=== PATIENT | male | born 1960 | race African-American/Black ===

== ENCOUNTER 2018-10-08 22:46 | Emergency (ER) | payer OTHER ==
[~2018-10-08] VITALS: Ht 182.9 cm; Wt 80.7 kg
[2018-10-08 23:10] VITALS: BP 146/96
[2018-10-08] MEDS ORDERED: LISINOPRIL20 MG ORAL (23:15)
[2018-10-08] MEDS ORDERED: NORVIR100 MG ORAL (23:15)
[2018-10-09 00:21] LABS: BASOPHILS % (AUTO) 2.3 % (0.0-2.0); EOSINOPHILS % (AUTO) 1.4 % (0.0-3.0); HEMATOCRIT 45.7 % (42.0-52.0); HEMOGLOBIN 15.4 G/DL (14.2-18.0); LYMPHOCYTES % (AUTO) 21.9 % (20.0-45.0); MEAN CORPUSCULAR VOLUME 85 FL (80-99); MONOCYTES % (AUTO) 6.7 % (1.0-10.0); NEUTROPHILS % (AUTO) 67.8 % (45.0-75.0); PLATELET COUNT 305 K/UL (150-450)
[2018-10-09 00:49] LABS: ALANINE AMINOTRANSFERASE 23 U/L (12-78); ALBUMIN 3.6 G/DL (3.4-5.0); ALBUMIN/GLOBULIN RATIO 0.7 (1.0-2.7); ALKALINE PHOSPHATASE 74 U/L (46-116); ANION GAP 6 mmol/L (5-15); ASPARTATE AMINO TRANSFERASE 32 U/L (15-37); BILIRUBIN,TOTAL 0.4 MG/DL (0.2-1.0); BLOOD UREA NITROGEN 20 mg/dL (7-18); CALCIUM 9.1 MG/DL (8.5-10.1); CARBON DIOXIDE 30 MMOL/L (21-32); CHLORIDE 102 MMOL/L (98-107); CREATININE 1.3 MG/DL (0.55-1.30); POTASSIUM 4.8 MMOL/L (3.5-5.1); SODIUM 138 MMOL/L (136-145)
--- NOTE | 2018-10-09 01:49 | Emergency Room Report ---
History of Present Illness General Chief Complaint: Behavioral Complaint Source: Patient, EMS (Lalo Knott MD) Present Illness HPI Patient presents via EMS with suicidal ideation. He called them. Allegedly he' s been doing cocaine and feels that he wants to end his life. Apparently has no plan that he is willing to discuss. [employer] accompanied patient. H/O depression and supposed to be taking Effexor. Off for many months. No chest pain, cough, NVD, abdominal pain, headache, weakness, polies, head injury, joint pain, rashes, dysuria. (Lalo Knott MD) Allergies: Coded Allergies: No Known Allergies (Unverified , 10/08/18) Patient History Past Medical History: see triage record Social History: Reports: smoking, drug use Social History Narrative in board and care Reviewed Nursing Documentation: PMH: Agreed; PSxH: Agreed (Lalo Knott MD) Nursing Documentation-PMH Hx Hypertension: Yes Hx Cancer: Yes - bladder Hx Neurological Problems: Yes - hiv (Lalo Knott MD) Review of Systems All Other Systems: negative except mentioned in HPI (Lalo Knott MD) Physical Exam Vital Signs Date Time Temp Pulse Resp B/P (MAP) Pulse Ox O2 Delivery O2 Flow Rate FiO2 10/08/18 23:10 99.0 76 14 146/96 99 Room Air Sp02 EP Interpretation: reviewed, normal General Appearance: well appearing, no apparent distress, GCS 15 Head: normocephalic Eyes: bilateral eye PERRL, bilateral eye EOMI, bilateral eye Scleral Injection ENT: moist mucus membranes Neck: supple Respiratory: chest non-tender, lungs clear, normal breath sounds Cardiovascular #1: regular rate, rhythm Cardiovascular #2: 2+ radial (R) Gastrointestinal: normal inspection, normal bowel sounds, non tender, no mass, non-distended Musculoskeletal: back normal, gait/station normal, normal range of motion Neurologic: alert, oriented x3, normal gait, grossly normal Psychiatric: depressed affect Suicide Risk Assessment: Suicidal Ideation: Yes Had intent to initiate attempt: No Pt's plan for suicide attempt: No Has means to complete attempt: No Skin: normal inspection, warm/dry (Lalo Knott MD) Medical Decision Making Diagnostic Impression: Primary Impression: Cocaine abuse Additional Impressions: Non-compliance Schizoaffective disorder Qualified Codes: F25.1 - Schizoaffective disorder, depressive type Suicidal ideation ER Course Patient presents for depression with non-compliance. DDx: exacerbation of depression, electrolyte imbalance, occult infection, drug ingestion amongst others. Evaluation with EKG and labs. Treatment with IV hydration and repeat evaluation. Imaging not indicated. EKG without injury. Labs with + tox for THC and cocaine. CBC and CMP normal ( BUN 20). Ordered usual psych meds and patient refused. Ate well and slept. Patient now taking Effexor and lisinopril (had refused to do so prior). I offered to give Rx but he states he does not feel stable to go home "I don't like my life". Patient states he wants to go to a psychiatric facility at this time. He now states last night he was thinking about going in front of a bus to end his life. Medically cleared for voluntary psychiatric transfer or evaluation 6:45. Signed out to Dr. Christy. Laboratory Tests Test 10/08/18 23:32 10/08/18 23:38 Urine Opiates Screen Negative (NEGATIVE) Urine Barbiturates Screen Negative (NEGATIVE) Phencyclidine (PCP) Screen Negative (NEGATIVE) Urine Amphetamines Screen Negative (NEGATIVE) Urine Benzodiazepines Screen Negative (NEGATIVE) Urine Cocaine Screen Positive (NEGATIVE) H Urine Marijuana (THC) Screen Negative (NEGATIVE) White Blood Count 7.0 K/UL (4.8-10.8) Red Blood Count 5.40 M/UL (4.70-6.10) Hemoglobin 15.4 G/DL (14.2-18.0) Hematocrit 45.7 % (42.0-52.0) Mean Corpuscular Volume 85 FL (80-99) Mean Corpuscular Hemoglobin 28.5 PG (27.0-31.0) Mean Corpuscular Hemoglobin Concent 33.6 G/DL (32.0-36.0) Red Cell Distribution Width 12.0 % (11.6-14.8) Platelet Count 305 K/UL (150-450) Mean Platelet Volume 7.3 FL (6.5-10.1) Neutrophils (%) (Auto) 67.8 % (45.0-75.0) Lymphocytes (%) (Auto) 21.9 % (20.0-45.0) Monocytes (%) (Auto) 6.7 % (1.0-10.0) Eosinophils (%) (Auto) 1.4 % (0.0-3.0) Basophils (%) (Auto) 2.3 % (0.0-2.0) H Sodium Level 138 MMOL/L (136-145) Potassium Level 4.8 MMOL/L (3.5-5.1) Chloride Level 102 MMOL/L (98-107) Carbon Dioxide Level 30 MMOL/L (21-32) Anion Gap 6 mmol/L (5-15) Blood Urea Nitrogen 20 mg/dL (7-18) H Creatinine 1.3 MG/DL (0.55-1.30) Estimate Glomerular Filtration Rate 56.7 mL/min (>60) Glucose Level 93 MG/DL (74-106) Calcium Level 9.1 MG/DL (8.5-10.1) Total Bilirubin 0.4 MG/DL (0.2-1.0) Aspartate Amino Transferase (AST) 32 U/L (15-37) Alanine Aminotransferase (ALT) 23 U/L (12-78) Alkaline Phosphatase 74 U/L (46-116) Total Protein 9.0 G/DL (6.4-8.2) H Albumin 3.6 G/DL (3.4-5.0) Globulin 5.4 g/dL Albumin/Globulin Ratio 0.7 (1.0-2.7) L Salicylates Level 1.4 ug/mL (2.8-20) L Acetaminophen Level < 2 MCG/ML (10-30) L Serum Alcohol < 3 mg/dL (Lalo Knott MD) ER Course Patient is medically cleared for psychiatric placement.The patient will be transferred for psychiatric placement. Laboratory Tests Test 10/08/18 23:32 10/08/18 23:38 Urine Opiates Screen Negative (NEGATIVE) Urine Barbiturates Screen Negative (NEGATIVE) Phencyclidine (PCP) Screen Negative (NEGATIVE) Urine Amphetamines Screen Negative (NEGATIVE) Urine Benzodiazepines Screen Negative (NEGATIVE) Urine Cocaine Screen Positive (NEGATIVE) H Urine Marijuana (THC) Screen Negative (NEGATIVE) White Blood Count 7.0 K/UL (4.8-10.8) Red Blood Count 5.40 M/UL (4.70-6.10) Hemoglobin 15.4 G/DL (14.2-18.0) Hematocrit 45.7 % (42.0-52.0) Mean Corpuscular Volume 85 FL (80-99) Mean Corpuscular Hemoglobin 28.5 PG (27.0-31.0) Mean Corpuscular Hemoglobin Concent 33.6 G/DL (32.0-36.0) Red Cell Distribution Width 12.0 % (11.6-14.8) Platelet Count 305 K/UL (150-450) Mean Platelet Volume 7.3 FL (6.5-10.1) Neutrophils (%) (Auto) 67.8 % (45.0-75.0) Lymphocytes (%) (Auto) 21.9 % (20.0-45.0) Monocytes (%) (Auto) 6.7 % (1.0-10.0) Eosinophils (%) (Auto) 1.4 % (0.0-3.0) Basophils (%) (Auto) 2.3 % (0.0-2.0) H Sodium Level 138 MMOL/L (136-145) Potassium Level 4.8 MMOL/L (3.5-5.1) Chloride Level 102 MMOL/L (98-107) Carbon Dioxide Level 30 MMOL/L (21-32) Anion Gap 6 mmol/L (5-15) Blood Urea Nitrogen 20 mg/dL (7-18) H Creatinine 1.3 MG/DL (0.55-1.30) Estimate Glomerular Filtration Rate 56.7 mL/min (>60) Glucose Level 93 MG/DL (74-106) Calcium Level 9.1 MG/DL (8.5-10.1) Total Bilirubin 0.4 MG/DL (0.2-1.0) Aspartate Amino Transferase (AST) 32 U/L (15-37) Alanine Aminotransferase (ALT) 23 U/L (12-78) Alkaline Phosphatase 74 U/L (46-116) Total Protein 9.0 G/DL (6.4-8.2) H Albumin 3.6 G/DL (3.4-5.0) Globulin 5.4 g/dL Albumin/Globulin Ratio 0.7 (1.0-2.7) L Salicylates Level 1.4 ug/mL (2.8-20) L Acetaminophen Level < 2 MCG/ML (10-30) L Serum Alcohol < 3 mg/dL (Nicolás Christy MD) EKG Diagnostic Results Rate: normal Rhythm: NSR ST Segments: no acute changes - LAE, LVH (Lalo Knott MD) Rhythm Strip Diag. Results EP Interpretation: yes Rhythm: NSR, no PVC's, no ectopy (Lalo Knott MD) Last Vital Signs Date Time Temp Pulse Resp B/P (MAP) Pulse Ox O2 Delivery O2 Flow Rate FiO2 10/09/18 16:17 98.2 72 18 120/80 98 Room Air Status: improved (Lalo Knott MD) Status: unchanged (Nicolás Christy MD) Disposition: XFER TO PSYCH HOSP/UNIT - [facility] Condition: Improved Referrals: NOT CHOSEN IPA/,REFERRING (PCP) Lalo Knott MD Oct 09, 2018 01:49 Nicolás Christy MD Oct 09, 2018 08:19
[2018-10-09] MEDS ORDERED: Venlafaxine XR 150mg cap ORAL ONE ×2 (03:00→06:15)
[2018-10-09] MEDS ORDERED: Lisinopril 10mg tab ORAL ONE ×2 (03:00→06:15)
[2018-10-09 03:01] VITALS: BP 114/83
[2018-10-09 09:18] VITALS: BP 120/80
[2018-10-09 16:17] VITALS: BP 120/80
== END 2018-10-09 14:00 ==
LOC: EDBD 22:46 → EMR 23:20
DX: R45.851 Suicidal ideations (principal); F14.10 Cocaine abuse, uncomplicated; Z91.14 Patient's other noncompliance with medication regimen; F25.1 Schizoaffective disorder, depressive type; I10 Essential (primary) hypertension; Z85.51 Personal history of malignant neoplasm of bladder; B20 Human immunodeficiency virus [HIV] disease
CPT/HCPCS: 36415; 80053; 80307; 80329; 85025; 93005; 99285